=== PATIENT | male | born 1970 | race Caucasian/White ===

== ENCOUNTER → 2021-01-16 | Outpatient (CLI) | payer OTHER ==
[~2021-01-16] MED LIST: SERT100T PO
[2021-01-16 16:06] LABS: MICROSCOPIC AUTO
== END | disposition home or self-care (01) ==
LOC: STAR 08:00
PROVIDERS: ATTEND Urology
DX: Z01.818 Encounter for other preprocedural examination (principal); N20.0 Calculus of kidney
CPT/HCPCS: 81001; 87086

== ENCOUNTER 2021-01-22 05:24 | Observation (INO) | payer OTHER ==
[~2021-01-22] VITALS: Ht 182.9 cm; Wt 90.1 kg
[2021-01-22 06:16] VITALS: BP 120/85
[2021-01-22] MEDS ORDERED: LACTATED RINGERS 1,000 ML IV SCH (06:30)
[2021-01-22] MEDS ORDERED: CHLORHEXIDINE 15 ML UDC PO ONE (06:30)
[2021-01-22] MEDS ORDERED: SODIUM CHLORIDE 0.9% 1,000 ML IV SCH (06:30)
[2021-01-22] MEDS ORDERED: CEFAZOLIN PMX 1GM/50ML 50 ML IV ONE (06:30)
[2021-01-22] MEDS ORDERED: LIDOCAINE 1%, 10ML ONE (07:18)
[2021-01-22] MEDS ORDERED: OMNIPAQUE 350 MG/ML, 50 ML BOTTLE ONE (07:49)
[2021-01-22] MEDS ORDERED: FENTANYL PF 100 MCG/2ML ONE (08:09)
[2021-01-22] MEDS ORDERED: FLUMAZENIL 0.1 MG/1 ML, 5ML ONE (08:09)
[2021-01-22] MEDS ORDERED: NALOXONE 1 MG/ML, 2ML ONE (08:09)
[2021-01-22] MEDS ORDERED: MIDAZOLAM 1 MG/ML, 5ML ONE ×2 (08:09)
[2021-01-22] MEDS ORDERED: VISIPAQUE 270 MG/ML, 50ML BOTTLE ONE (09:02)
[2021-01-22] MEDS ORDERED: MIDAZOLAM 1 MG/ML, 2ML ONE (09:43)
[2021-01-22] MEDS ORDERED: FENTANYL PF 250 MCG/5ML ONE ×2 (09:43→11:14)
[2021-01-22] MEDS ORDERED: FENTANYL PF 100 MCG/2ML IV PRN (10:00)
[2021-01-22] MEDS ORDERED: ONDANSETRON 2MG/ML, 2ML IVPush PRN (10:00)
[2021-01-22] MEDS ORDERED: morphine SULFATE 10 MG/ML, 1ML IVPush PRN (10:00)
[2021-01-22] MEDS ORDERED: ACETAMINOPHEN 325 MG TABLET PO PRN (10:00)
[2021-01-22] MEDS ORDERED: MEPERIDINE/PF 25MG/0.5ML IVPush PRN (10:00)
[2021-01-22] MEDS ORDERED: OXYcodone 5 MG/5 ML ORAL.SOL UDC PO PRN (10:00)
[2021-01-22] MEDS ORDERED: hydrALAzine 20 MG/ML, 1ML IV PRN (10:00)
[2021-01-22] MEDS ORDERED: HYDROmorphone 1 MG/ML, 1ML INJ IVPush PRN (10:00)
[2021-01-22] MEDS ORDERED: LABETALOL 5MG/ML, 20ML IV PRN (10:00)
[2021-01-22] MEDS ORDERED: SODIUM CHLORIDE 0.9% 50 ML ONE (10:42)
[2021-01-22] MEDS ORDERED: ROCURONIUM 10MG/ML,5ML ONE (11:13)
[2021-01-22] MEDS ORDERED: GLYCOPYRROLATE 0.2MG/1ML, 5ML ONE (11:13)
[2021-01-22] MEDS ORDERED: CEFAZOLIN 1,000 MG ONE (11:13)
[2021-01-22] MEDS ORDERED: PROPOFOL 10 MG/ML, 20ML ONE (11:13)
[2021-01-22] MEDS ORDERED: NEOSTIGMINE 1 MG/ML, 10ML ONE (11:13)
[2021-01-22] MEDS ORDERED: KETOROLAC 30 MG/1 ML ONE (12:05)
[2021-01-22] MEDS ORDERED: OXYcodone/APAP 5/325MG TABLET PO PRN (12:30)
[2021-01-22] MEDS ORDERED: ONDANSETRON 2MG/ML, 2ML IV PRN (12:30)
[2021-01-22] MEDS ORDERED: MEPERIDINE/PF 25MG/ML,1ML ONE (12:49)
[2021-01-22] MEDS: LACTATED RINGERS 1,000 ML IV SCH ×2 (14:00→23:43)
[2021-01-22 19:59] VITALS: BP 110/75
[2021-01-23 00:08] VITALS: BP 103/68
[2021-01-23 04:13] VITALS: BP 100/63
[2021-01-23 08:02] VITALS: BP 111/71
[2021-01-23] MEDS ORDERED: SERTRALINE 100MG TABLET PO SCH (09:00)
== END 2021-01-23 11:59 | disposition home or self-care (01) ==
LOC: OUT 05:24 → 4NE 13:53 → OUT 21:56
PROVIDERS: ADMIT Urology; ATTEND Urology
DX: N20.0 Calculus of kidney (principal); K58.9 Irritable bowel syndrome, unspecified; F17.200 Nicotine dependence, unspecified, uncomplicated
CPT/HCPCS: 50081; 50433; 82360; 88300; 96360; 96361; 99156; 99157; C1729; C1751; C1769; C1894; C2625; C2627; G0378; J0690; J1885; J2175; J2250; J2704; J2710; J3010; J3490; J7030; J7120; Q9966; Q9967; 74425; J2310